=== PATIENT | female | born 1985 | race Caucasian/White ===

== ENCOUNTER 2018-12-23 12:09 | Emergency (ER) | payer SELFPAY ==
[2018-12-23] MEDS ORDERED: Ondansetron ODT 4 MG TAB ONE (12:20)
[2018-12-23] MEDS ORDERED: Acetaminophen/Codeine 30-300mg Tablet ONE ×2 (12:20)
[2018-12-23] MEDS ORDERED: Adacel (T-DAP) 0.5 ML SYRINGE ONE (12:20)
--- NOTE | 2018-12-23 13:27 | CT ---
CT CERVICAL SPINE: Date: 12/23/18 PROVIDED CLINICAL HISTORY: Facial injury. FINDINGS: Cervical alignment appears normal. There is no evidence for cervical spine fracture. No prevertebral soft tissue swelling apparent. The visualized lung apices appear clear. Please see concurrently dicta barry facial bones CT for details regarding facial findings. There is a central disc herniation noted a t C5-6 with potential for mass effect upon the ventral spinal cord. IMPRESSION: 1. No evidence for fracture or traumatic subluxation involving the cervical spine. 2. 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 POS: [facility]
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
== END 2018-12-23 13:50 | disposition short-term general hospital (02) ==
LOC: MADERS 12:09
DX: S02.102A Fracture of base of skull, left side, initial encounter for closed fracture (principal); S02.19XA Other fracture of base of skull, initial encounter for closed fracture; M50.222 Other cervical disc displacement at C5-C6 level; W22.8XXA Striking against or struck by other objects, initial encounter
CPT/HCPCS: 70450; 70486; 72125; 90471; 90715; Q0162